=== PATIENT | male | born 1995 | race Caucasian/White ===

== ENCOUNTER 2022-04-26 21:20 | Outpatient (REF) | payer MEDICAID, SELFPAY | END 2022-04-26 21:21 | disposition home or self-care (01) | LOC: LBN 21:20 | PROVIDERS: Visit Provider Nurse Practitioner Family | DX: J02.9 Acute pharyngitis, unspecified (principal) | CPT/HCPCS: 87070 ==

== ENCOUNTER 2022-05-29 19:21 | Outpatient (REF) | payer MEDICAID, SELFPAY | END 2022-05-29 19:22 | disposition home or self-care (01) | LOC: LBN 19:21 | PROVIDERS: Visit Provider Nurse Practitioner Family | DX: J02.9 Acute pharyngitis, unspecified (principal) | CPT/HCPCS: 87070 ==

== ENCOUNTER 2022-06-03 09:41 | Emergency (ER) | payer MEDICAID, SELFPAY ==
--- NOTE | 2022-06-03 09:45 | DI.RAD_ITS ---
Exam(s) XR PORTABLE CHEST AP EXAM: XR PORTABLE CHEST AP CLINICAL HISTORY: cough TECHNIQUE: 2D digital imaging was performed of the chest. One image was obtained. An AP view was ob tained. COMPARISON: No exams were available for comparison FINDINGS: MEDIASTINUM: Normal. HEART: Normal. PULMONARY VASCULATURE: Normal. LUNGS: Clear. PLEURAL SPACE: No pleural effusion or pneumothorax. BONE:Within normal limits for the patient's age. OTHER FINDINGS:Normal. IMPRESSION: No acute pulmonary findings. DATA REPOSITORY: RADIATION DOSE DELIVERED:
[2022-06-03 09:46] VITALS: BP 135/90; PULSE 125; RESP 16; TEMP 37; O2SAT 100
--- NOTE | 2022-06-03 09:57 | ED.GENADUL_ITS ---
Discharge Plan Disposition Patient Disposition: Home Condition: Stable Discharge Details Clinical Impression: Cough Primary Care Provider: Unknown,Unknown ED Provider: Bob Sierra Home Meds and New Rx's Prescriptions: New prednisone 20 mg tablet 60 mg PO DAILY 4 Days Qty: 12 0RF Continued bupropion HCl [Wellbutrin SR] 150 mg tablet sustained-release 12 hr 150 mg PO DAILY albuterol sulfate [Proventil HFA] 90 mcg/actuation HFA aerosol inhaler 2 puff inhalation Q6H PRN (Reason: shortness of breath or wheezing) Qty: 8.5 0RF Rx Instructions: Disp with spacer Dx. bronchospasm Discharge Instructions Instructions: Acute Cough (ED) Additional Instructions: your xray did not show concerning findings follow up with your primary care provider if symptoms continue if you feel more ill, have worsening trouble breathing or severe worsening pain return to the emergency department Medical Decision Making 26 yo male with hx of asthma comes in with intermittent coughing fits for the last 3-4 months. Denies fevers, chills, sob. He states when he coughs he has right lateral chest pain he localizes to the mid right axillary line. He used to smoke but quit a year ago and denies other drug use. He arrives stable speaking clearly in no distress. He has no jvd, no murmurs, normal visual and palpable inspection of the chest but is tender in the mid right axillary line, no erythema or warmth. No abdominal tenderness. No leg swelling or calf tenderness, hr on my exam is 92. Unclear etiology for his continued intermittent cough, given well appearance doubt pneumonia but given he hasn't had an xray will obtain this, less concern for pneumonia. No evidence of dvt on exam and no hypoxia so doubt PE. No chest pressure and pain is only when coughing so do not feel acs workup indicated. pt stable, pain resolved with ibuprofen and still clear lungs, no coughing here. Xray unremarkable on my read. Suspect this could be due to his underlying asthma, he has tried anbitiotics without relief and given no fever do not feel antibiotics indicated. Will trial prednisone. He is moving back to [place] in the next month so advised to f/u with his pcp there, return precautions given Differential Diagnosis Differential Diagnosis: asthma, pneumonia, bronchitis Imaging Data Radiologic Study: Attestation: I personally reviewed and interpreted this imaging study as follows: Imaging: X-Ray My impression: no acute findings HPI General Mode of arrival: ambulatory . Date/Time Provider Initiated Documentation: 06/03/22 09:43 . Limitations to Documentation: no limitations . Information obtained by: patient . History of Present Illness 26 year old M presents to the emergency department with the chief complaint of coughing fits, described as moderate, Patient started experiencing this month(s) (4) and it has been intermittent. No relieving factors improve symptom(s), No exacerbating factors reported . Patient notes chest pain; denies fever/chills, shortness of breath, syncope and weakness. Patient did receive the following treatments prior to arrival, none Related Data Home Medications Medication Instructions Recorded Confirmed albuterol sulfate 90 mcg/actuation 2 puff inhalation Q6H PRN 01/30/22 06/03/22 aerosol inhaler (Proventil HFA) shortness of breath or wheezing #8.5 grams bupropion HCl 150 mg tablet,12 hr 150 mg PO DAILY 01/30/22 06/03/22 sustained-release (Wellbutrin SR) prednisone 20 mg tablet 60 mg PO DAILY 4 days #12 tabs 06/03/22 Previous Rx's Medication Instructions Recorded albuterol sulfate 90 mcg/actuation 2 puff inhalation Q6H PRN 01/30/22 aerosol inhaler (Proventil HFA) shortness of breath or wheezing #8.5 grams prednisone 20 mg tablet 60 mg PO DAILY 4 days #12 tabs 06/03/22 Allergies Allergy/AdvReac Type Severity Reaction Status Date / Time No Known Allergies Allergy Verified 06/03/22 09:50 General Stated Complaint: RespSymp KIERSTEN: 4 Review of Systems All systems reviewed & are unremarkable except as noted in HPI and below Constitutional Constitutional: Denies chills, Denies fever(s) and Denies weakness Cardiovascular Cardiovascular: Denies dyspnea Respiratory Respiratory: Denies dyspnea Gastrointestinal Gastrointestinal: Denies abdominal pain, Denies nausea and Denies vomiting Musculoskeletal Musculoskeletal: Denies joint swelling Neurologic Neurologic: Denies weakness PFSH All Active Problems (Updated 06/03/22 @ 10:59 by Bob Sierra MD) Cough (Acute) Social History Smoking/Tobacco Use Status: Former Tobacco Use Smoking risk assessment performed?: Yes Alcohol Intake: current Alcohol Intake frequency: holidays/special occasions only Drug use: Never Substance use type: does not use Do you feel safe at home: Yes Do you feel safe in your relationship?: Yes Exam Const General: no acute distress Orientation: alert [facility] Head: normal to inspection Ears: external ears normal General nose exam: external nose normal Mouth: moist mucous membranes Eyes General: appearance normal, both eyes and all related structures Neck Neck: normal visual inspection Chest Chest: normal inspection of the chest Resp Effort & Inspection: normal respiratory effort, able to speak in complete sentences, no audible wheezes and no cough Auscultation: clear to auscultation bilaterally Cardio Jugular venous pressure: no JVD Rate: regular rate Heart Sounds: no murmurs GI Palpation: soft and nontender Skin General skin exam: no rashes or lesions noted Neuro General: patient alert and patient oriented x3 Extrem General: normal to inspection Psych Mental Status: mental status grossly normal Course Vital Signs Vital signs: Vital Signs Temperature 37.0 C 06/03/22 09:46 Pulse 125 H 06/03/22 09:46 Respiratory Rate 16 06/03/22 09:46 Blood Pressure 135/90 06/03/22 09:46 Pulse Oximetry 100 06/03/22 09:46 Temperature 37.0 C 06/03/22 09:46 Temperature Source Oral 06/03/22 09:46 Pulse 125 H 06/03/22 09:46 Respiratory Rate 16 06/03/22 09:46 Respiratory Effort Normal 06/03/22 09:49 Respiratory Depth Normal 06/03/22 09:49 Blood Pressure 135/90 06/03/22 09:46 Blood Pressure Position Sitting 06/03/22 09:46 Pulse Oximetry 100 06/03/22 09:46 Oxygen Delivery Method Room Air 06/03/22 09:46 Oxygen Flow Rate 0 06/03/22 09:46 Pain Level 10 06/03/22 09:46 PAWSS Have you Been Recently Intoxicated or Drunk Within the Last 30 days?: No Have you Ever Experienced Previous Episodes of Alcohol Withdrawal?: No Have you ever Experienced Withdrawal Seizures?: No Have you ever Experienced Delirium Tremens(DT)s?: No Have you ever undergone Alcohol Rehabilitation Treatment (i.e, inpt ot outpatient treatment programs)?: No Have you ever Experienced Blackouts?: No Have you ever Combined Alcohol with other Downers within the last 90 days?: No Have you ever Combined Alcohol with any other Substance of Abuse during the last 90 days?: No Result: 0
[2022-06-03] MEDS: Ibuprofen 600 MG TAB PO (10:07)
[2022-06-03 11:05] VITALS: BP 118/75; PULSE 75; RESP 18; O2SAT 97
== END 2022-06-03 11:05 | disposition home or self-care (01) ==
PROVIDERS: Emergency Provider Emergency Medicine
DX: R05.9 Cough, unspecified (principal); Z87.891 Personal history of nicotine dependence
CPT/HCPCS: 99283; 71045; 99284